=== PATIENT | female | born 1960 | race Caucasian/White ===

== ENCOUNTER 2016-08-24 10:16 | Emergency (ER) | payer OTHER ==
[~2016-08-24 10:16] MED LIST: ALBINS INH; ALPR1TAB PO; ASPEC325 PO; ATRINS NEB; CMD5 PO; CYTM25 PO; FLUO40CA8 PO; FNTTP50 TD; LVNIS100 SQ; METH10TA4 PO; OLAN-111 PO; PRAZ2CAP3 PO; PREG100C PO; RXC5 PO; UMEC1AER INH
[2016-08-24 10:32] VITALS: PULSE 0
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
== END 2016-08-24 10:30 | disposition expired ==
LOC: C.ED 10:16 → EDBD 10:16 → C.EDA 10:30
DX: I46.9 Cardiac arrest, cause unspecified (principal); G89.29 Other chronic pain; E03.9 Hypothyroidism, unspecified; F43.10 Post-traumatic stress disorder, unspecified; Z79.01 Long term (current) use of anticoagulants; F17.200 Nicotine dependence, unspecified, uncomplicated